=== PATIENT | male | born 1970 | race Caucasian/White ===

== ENCOUNTER → 2018-04-14 | Outpatient (CLI) | payer BC ==
[~2018-04-14] MED LIST: DEXILANT; DEXILANT60 MG PO
--- NOTE | 2018-04-14 10:09 | Diagnostic Imaging Report ---
PROCEDURE: X-RAY UPPER GI SERIES WITH AIR CONTRAST TECHNIQUE: Thin and thick barium were swallowed along with gastric crystals and a variety of fluoroscopic views were obtained of the upper GI tract. BULLET SWAGING MACHINE OPERATOR: Crystal Sawyer MD COMPARISON: None. INDICATIONS: Not provided. FINDINGS: ESOPHAGUS: Motility: Predominately primary and secondary contractions. Scattered tertiary contractions. Mucosa: Unremarkable. Distensibility: Normal. GASTROESOPHAGEAL JUNCTION: Moderate hiatal hernia. GASTROESOPHAGEAL REFLUX: Moderate inducible gastroesophageal reflux to the level of the aortic arch. STOMACH: Normally distensible and demonstrates normal contours and mucosal pattern. DUODENUM: Bulb and sweep are normal. Duodenal-jejunal junction is in the normal expected position. IMPRESSION: Moderate hiatal hernia. Moderate inducible gastroesophageal reflux. Dictated by: CRYSTAL SAWYER M.D. on 04/14/2018 at 10:18 Electronically approved by: CRYSTAL SAWYER M.D. on 04/14/2018 at 10:18
== END ==
LOC: DX 08:10
PROVIDERS: ATTEND Surgery
DX: K44.9 Diaphragmatic hernia without obstruction or gangrene (principal)
CPT/HCPCS: 74246

== ENCOUNTER → 2018-05-12 | Day surgery (SDC) | payer BC ==
[2018-05-09 17:54] LABS: BASOPHILS # (AUTO) 0.1 (0.0-0.1); BASOPHILS % 0.8 % (0.0-1.0); EOSINOPHILS # (AUTO) 0.3 (0.0-0.4); EOSINOPHILS % 4.1 % (0.0-6.0); HEMATOCRIT 45.4 % (38.2-49.6); HEMOGLOBIN 15.9 g/dL (14.0-18.0); LYMPHOCYTES # (AUTO) 1.9 (1.0-3.2); LYMPHOCYTES % 31.6 % (18.0-39.1); MEAN CORPUSCULAR HEMOGLOBIN 30.3 pg (28-32); MEAN CORPUSCULAR VOLUME 86.6 fL (81-99); MONOCYTES # (AUTO) 0.5 (0.2-0.8); MONOCYTES % 7.3 % (4.4-11.3); NEUTROPHILS # (AUTO) 3.4 (2.1-6.9); NEUTROPHILS % 55.9 % (38.7-80.0); PLATELET COUNT 179 x10e3/uL (140-360); RED BLOOD COUNT 5.24 x10e6/uL (4.3-5.7); RED CELL DISTRIBUTION WIDTH 12.5 % (11.7-14.4)
[2018-05-09 18:16] LABS: ALANINE AMINOTRANSFERASE 19 IU/L (0-55); ALBUMIN 4.2 g/dL (3.5-5.0); ALBUMIN/GLOBULIN RATIO 1.8 (0.8-2.0); ALKALINE PHOSPHATASE 45 IU/L (40-150); ANION GAP 14.1 mmol/L (8-16); BLOOD UREA NITROGEN 12 mg/dL (7-26); BUN/CREATININE RATIO 13 (6-25); CALCIUM 9.1 mg/dL (8.4-10.2); CARBON DIOXIDE 25 mmol/L (22-29); CHLORIDE 105 mmol/L (98-107); CREATININE, SERUM 0.94 mg/dL (0.72-1.25); EST GLOMERULAR FILTRATION RATE > 60 ML/MIN (60-); GLUCOSE 98 mg/dL (74-118); POTASSIUM 4.1 mmol/L (3.5-5.1); SODIUM 140 mmol/L (136-145)
[2018-05-09 18:17] LABS: INR 0.91; PROTHROMBIN TIME 13.1 seconds (11.9-14.5)
[~2018-05-12] VITALS: Ht 188 cm; Wt 95.3 kg
[2018-05-12] VITALS (16 sets, daily range): BP systolic 103–138; BP diastolic 69–88
[~2018-05-12] MED LIST changes: +ALPRAZOLAM 0.5 MG TAB ONE; +DIPHENHYDRAMINE HCL 25 MG CAP ONE; +FENTANYL CITRATE/PF 100MCG/2 ML INJ ONE; +HEPARIN SOD (PORCINE) 1000 UNIT/ML 30ML ONE; +HEPARIN SOD/SOD CHLORIDE 2,000 ML ONE; +IOPAMIDOL 370 MG/ML 200 ML INFUS..BTL INJ ONE; +LIDOCAINE HCL 2% LOCAL 20 ML VIAL ONE; +MIDAZOLAM HCL 2 MG/2 ML VIAL ONE; +MORPHINE SULFATE INJ 4 MG/ML INJ ONE; +NITROGLYCERIN 400 MCG/SPRAY 4.9 GM BTL ONE; +NITROGLYCERIN/D5W 200 MCG/ML 250 ML ONE; +SODIUM CHLORIDE 0.9% 1000ML 1,000 ML ONE; +SODIUM CHLORIDE 0.9% 500ML 500 ML ONE; +TICAGRELOR 90 MG TABLET ONE; +VERAPAMIL HCL 2.5 MG/ML 2 ML VIAL ONE
--- OUTSIDE RECORDS SUMMARY | 2018-05-12 11:55 | XMS REPORT ---
Author Author [facility] Address Unknown Phone Unavailable Care Team Providers Care Casing Splitter Name Role Phone Jluis RIZVI Unavailable Unavailable Problems This patient has no known problems. Allergies, Adverse Reactions, Alerts This patient has no known allergies or adverse reactions. Medications This patient has no known medications. Results Test Description Test Time Test Comments Text Results Atomic Results Result Comments UPPER GI W/AIR CONTR 2018-04-14 10:18:00 [place] [address] Patient Name: ECHO HUTCHISON MR #: [id number] : 1970 Age/Sex: 47/M Req #: [id number] [facility] Physician: Ordered by: LEYDI RIZVI MD Report #: [id number] Location: DX Room/Bed: Procedure: [id number] DX/UPPER GI W/AIR CONTR Exam Date: 04/14/18 Exam Time: 0900 REPORT STATUS: Signed PROCEDURE: X-RAY UPPER GI SERIES WITH AIR CONTRAST TECHNIQUE: Thin and thick barium were swallowed along with gastric crystals and a variety of fluoroscopic views were obtained of the upper GI tract. SUPERVISOR GREEN END DEPARTMENT: Shira Sawyer MD COMPARISON: None. INDICATIONS: Not provided. FINDINGS: ESOPHAGUS: Motility: Predominately primary and secondary contractions. Scattered tertiary contractions. Mucosa: Unremarkable. Distensibility: Normal. GASTROESOPHAGEAL JUNCTION: Moderate hiatal hernia. GASTROESOPHAGEAL REFLUX: Moderate inducible gastroesophageal reflux to the level of the aortic arch. STOMACH: Normally distensible and demonstrates normal contours and mucosal pattern. DUODENUM: Bulb and sweep are normal. Duodenal-jejunal junction is in the normal expected position. IMPRESSION: Moderate hiatal hernia. Moderate inducible gastroesophageal reflux. Dictated by: SHIRA SAWYER M.D. on 04/14/2018 at 10:18 Electronically approved by: SHIRA SAWYER M.D. on 04/14/2018 at 10:18 Dictated By: SHIRA SAWYER MD [id number] Transcribed By: MINDI on 04/14/18 1018 COPY TO: LEYDI RIZVI MD
--- NOTE | 2018-05-12 15:47 | Operative Report ---
DATE OF PROCEDURE: May 12, 2018 INDICATIONS: Coronary artery disease, unstable angina and abnormal stress test. PROCEDURES PERFORMED 1. Left heart catheterization. 2. Selective coronary angiography. 3. Percutaneous transluminal coronary angioplasty and stent placement in the distal right coronary artery. 4. Deployment of right wrist transradial band. COMPLICATIONS: None. RECOMMENDATIONS: Dual antiplatelet therapy for at least 6 months. Access was obtained in the right radial artery. A 5-Zimbabwean sheath was placed. Diagnostic coronary angiogram revealed a patent left main. Left anterior descending artery proximal 50% and circumflex 50%. Right coronary artery 50%. Proximally and distally 80%. LV end-diastolic pressure 12. A decision was made to intervene on the right coronary artery. The right coronary artery was cannulated using a JR4 6-Zimbabwean guiding catheter. Patient received 10,000 units of intravenous heparin and oral Brilinta for anticoagulation. The lesion was crossed with a Roadrunner wire, and primary stent 2.5 x 12 mm at 20 atmospheres. Excellent end result. No complications. Right wrist TR band applied. Patient discharged home same day. Job#: [id number] [place]
== END | disposition home or self-care (01) ==
LOC: CATH LAB 11:53
PROVIDERS: ATTEND Internal Medicine Interventional Cardiology
DX: I25.110 Atherosclerotic heart disease of native coronary artery with unstable angina pectoris (principal); R94.39 Abnormal result of other cardiovascular function study; Z01.812 Encounter for preprocedural laboratory examination; Z82.49 Family history of ischemic heart disease and other diseases of the circulatory system
CPT/HCPCS: 36415; 80053; 85025; 85610; 92928; 93454; C1874; C1887; J1644; J2001; J2250; J7030; J7040; Q9967; J2270

== ENCOUNTER → 2019-12-29 | Outpatient (CLI) | payer OTHER ==
[~2019-12-29] MED LIST changes: -ALPRAZOLAM 0.5 MG TAB ONE; -DIPHENHYDRAMINE HCL 25 MG CAP ONE; -FENTANYL CITRATE/PF 100MCG/2 ML INJ ONE; -HEPARIN SOD (PORCINE) 1000 UNIT/ML 30ML ONE; -HEPARIN SOD/SOD CHLORIDE 2,000 ML ONE; -IOPAMIDOL 370 MG/ML 200 ML INFUS..BTL INJ ONE; -LIDOCAINE HCL 2% LOCAL 20 ML VIAL ONE; -MIDAZOLAM HCL 2 MG/2 ML VIAL ONE; -MORPHINE SULFATE INJ 4 MG/ML INJ ONE; -NITROGLYCERIN 400 MCG/SPRAY 4.9 GM BTL ONE; -NITROGLYCERIN/D5W 200 MCG/ML 250 ML ONE; -SODIUM CHLORIDE 0.9% 1000ML 1,000 ML ONE; -SODIUM CHLORIDE 0.9% 500ML 500 ML ONE; -TICAGRELOR 90 MG TABLET ONE; -VERAPAMIL HCL 2.5 MG/ML 2 ML VIAL ONE
--- NOTE | 2019-12-29 15:04 | Diagnostic Imaging Report ---
Right knee MRI without contrast. History: Knee pain. Decreased range of motion. Pain not responding to conservative management. Medial pain. Meniscus tear. Comparison: None. Technique: Multiplanar multi-sequence MRI of the knee without contrast. Findings: Medial compartment: Complex tear involving the posterior horn and body segments of the medial meniscus. Reactive bone marrow edema at the posterior periphery of the medial tibial plateau. Articular cartilage fraying and deep fissuring in the medial compartment with mild underlying bone marrow edema. Peripheral marginal osteophytes. The medial collateral ligament complex is intact. Lateral compartment: No meniscal tear or cartilage abnormality. The LCL complex is normal. Intercondylar notch: The ACL and PCL are intact. Patellofemoral compartment: No chondromalacia or patellar dislocation. Extensor mechanism: The quadriceps and patellar tendons are normal. Other findings: There is a joint effusion and synovitis. There is no acute fracture, subluxation or avascular necrosis. 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 Signed by: Dr. Joseph Escalera M.D. on 12/29/2019 3:00 PM
== END ==
LOC: MRI 13:31
PROVIDERS: ATTEND Family Medicine
DX: M23.303 Other meniscus derangements, unspecified medial meniscus, right knee (principal)

== ENCOUNTER → 2020-01-29 | Day surgery (SDC) | payer OTHER ==
[2020-01-25 13:49] LABS: BASOPHILS % 0.7 % (0.0-1.0); EOSINOPHILS # (AUTO) 0.2 (0.0-0.4); EOSINOPHILS % 4.1 % (0.0-6.0); HEMATOCRIT 43.6 % (38.2-49.6); HEMOGLOBIN 14.6 g/dL (14.0-18.0); LYMPHOCYTES # (AUTO) 1.6 (1.0-3.2); MEAN CORPUSCULAR HEMOGLOBIN 29.6 pg (28-32); MEAN CORPUSCULAR HGB CONC 33.5 g/dL (31-35); MEAN CORPUSCULAR VOLUME 88.3 fL (81-99); MONOCYTES # (AUTO) 0.3 (0.2-0.8); MONOCYTES % 5.8 % (4.4-11.3); NEUTROPHILS # (AUTO) 3.6 (2.1-6.9); NEUTROPHILS % 61.1 % (38.7-80.0); PLATELET COUNT 141 x10e3/uL (140-360); RED BLOOD COUNT 4.94 x10e6/uL (4.3-5.7); RED CELL DISTRIBUTION WIDTH 12.3 % (11.7-14.4)
--- NOTE | 2020-01-25 14:20 | Diagnostic Imaging Report ---
Exam: CHEST 2 VIEWS Date: 01/25/2020 2:16 PM INDICATION: ^[id number] ^[id number] ^PRE-OP Comparison: None FINDINGS: Lines/Tubes:None Lungs:The lungs are well inflated. No focal consolidation or pulmonary edema. Pleura:No pleural effusion. No pneumothorax. Heart/Mediastinum:The cardiomediastinal silhouette is normal in size and contour. Trachea projects midline. Pulmonary vascularity is within normal limits. Bones/Soft Tissues: No acute osseous abnormality. Mild multilevel degenerative changes of the visualized spine are noted. Upper abdomen: Unremarkable. IMPRESSION: Negative for acute intrathoracic process Signed by: Aidan Gannon MD on 01/25/2020 2:17 PM
[~2020-01-29] MED LIST changes: +ASPIRIN81 MG PO; +ATENOLOL50 MG PO; +ATORVASTATIN CA40 MG PO; +BUPIVACAINE 0.25% 30ML SDV INJ ONE; +CEFAZOLIN SOD 1 GM/NS 50ML 100 ML IV ONE; +DEXAMETHASONE SOD PHOS INJ 4 MG/ML VIAL ONE; +KETOROLAC TROMETHAMINE 30 MG/ML VIAL ONE; +LIDOCAINE 1% W/EPINEPHRINE 20 ML VIAL ONE; +LIDOCAINE HCL 2% LOCAL INJ 5 ML SDV VIAL INJ ONE; +MIDAZOLAM HCL 2 MG/2 ML VIAL ONE; +ONDANSETRON HCL INJ 2MG/ML 2ML 2 MG/ML VIAL ONE; +PROPOFOL IV EMULSION 10 MG/ML 20 ML VIAL ONE; +SEVOFLURANE INHAL SOLN 250 ML PEN BTL ONE
[2020-01-29 09:10] VITALS: BP 119/76
--- NOTE | 2020-01-29 10:16 | NUR ---
ORTHOPEDICS OPERATIVE NOTE PREOPERATIVE DIAGNOSES: Right Knee Medial Meniscus Tear POSTOPERATIVE DIAGNOSES: Right Knee Complex Medial Meniscus Tear, Synovitis, Chondromalacia PROCEDURE: Right Knee Arthroscopic Partial Medial Meniscectomy, Chondroplasty, and Partial Synovectomy SURGEON: Joana Maloney DO AVAYA ENGINEER: EUNICE Gonzalez ANESTHESIA: General COMPLICATIONS: None TOURNIQUET: Applied but not inflated. No tourniquet EBL: Minimal INDICATIONS: Due to persistent pain and limitations on activity combined with findings on exam and imaging, the patient requests surgical treatment. Nonopera tive care and alternative surgical options were reviewed. We agreed that this provided the best risk/benefit profile for this patient, understanding and accepting risks of recurrent/persistent symptoms, infection, bleeding, stiffness, neurological/vascular damage, failure to improve and anesthetic complication (as reviewed by anesthesia service). Also, the patient understands that arthroscopic treatment of articular cartilage lesions provides temporary incomplete relief but that meniscal symptoms should be well addressed. FINDINGS: Patella Grade 2 Trochlea - Grade 1 Lateral Gutter Normal Medial Gutter Normal Medial Compartment Femoral - Grade 1 Tibial - Grade 1 Medial Meniscus - Complex tear of posterior horn Cruciate region - Normal Lateral Compartment Femoral - Grade 1 Tibial - Grade 1 Lateral Meniscus - Normal Synovium - Hypertrophic & Hyperemic in all three compartments PROCEDURE: With the patient in the supine position with all prominences well padded, general anesthesia was obtained. Sterile prepping and draping were performed. Antibiotics had been given and a time out performed. After an injection of 1% Lidocaine with Epinephrine in the proposed incision sites, The arthroscope was i nserted via a small lateral parapatellar tendon incision into the patellofemoral space. Under direct visualization, a medial parapatellar tendon portal was created providing a working portal. Diagnostic arthroscopy was performed and the above findings were noted. Within the patellofemoral space, a large impinging plica was noted causing chondromalacia of the inferior pole of the patella. This synovium and plica was excited and the chondromalacia was shaved to a stable border. Within the medial compartment, the medial meniscus was debrided to establish a well-balanced rim, removing approximately 60% of the posterior horn of the medial meniscus. A stable border was created. There was grade 1 chondromalacia, which was debrided to stable borders. Within the intercondylar space, the ACL was visualized and intact The lateral compartment demonstrated a friable and frayed lateral meniscus with grade 1 chondromalacia. This was debrided with an arthroscopic shaver to a stab le border with 80% of the meniscus remaining. The joint was extravasated and .25% marcaine was injected into the knee. The incisions were closed and more local was injected around the portal sites. Steristrips, Xeroform, 4x4s, ABDs and a compressive PAT bandage were applied. The patient was awakened and transferred to the PACU in satisfactory condition having tolerated the procedure well.
== END | disposition home or self-care (01) ==
LOC: OR 05:39
PROVIDERS: ATTEND Orthopaedic Surgery
DX: S83.231A Complex tear of medial meniscus, current injury, right knee, initial encounter (principal); M65.9 Synovitis and tenosynovitis, unspecified; M22.41 Chondromalacia patellae, right knee; M67.51 Plica syndrome, right knee; K21.9 Gastro-esophageal reflux disease without esophagitis; I25.10 Atherosclerotic heart disease of native coronary artery without angina pectoris; X58.XXXA Exposure to other specified factors, initial encounter; Z01.810 Encounter for preprocedural cardiovascular examination; Z01.812 Encounter for preprocedural laboratory examination; Z01.818 Encounter for other preprocedural examination; Z11.59 Encounter for screening for other viral diseases; Z79.82 Long term (current) use of aspirin; Z95.5 Presence of coronary angioplasty implant and graft
CPT/HCPCS: 29881; 36415; 71046; 85025; 93005; J0690; J1100; J1885; J2001; J2250; J2405; J2704; U0002

== ENCOUNTER → 2021-04-03 | Day surgery (SDC) | payer OTHER ==
[~2021-04-03] MED LIST changes: -BUPIVACAINE 0.25% 30ML SDV INJ ONE; -CEFAZOLIN SOD 1 GM/NS 50ML 100 ML IV ONE; +DEXAMETHASONE SOD PHOS INJ 4 MG/ML SDV ONE; -DEXAMETHASONE SOD PHOS INJ 4 MG/ML VIAL ONE; -KETOROLAC TROMETHAMINE 30 MG/ML VIAL ONE; -LIDOCAINE 1% W/EPINEPHRINE 20 ML VIAL ONE; -SEVOFLURANE INHAL SOLN 250 ML PEN BTL ONE
[2021-04-03 13:00] VITALS: BP 112/77
== END | disposition home or self-care (01) ==
LOC: OR 10:08
PROVIDERS: ATTEND Internal Medicine Gastroenterology
DX: K21.9 Gastro-esophageal reflux disease without esophagitis (principal); K22.70 Barrett's esophagus without dysplasia; Z68.28 Body mass index [BMI] 28.0-28.9, adult; R03.0 Elevated blood-pressure reading, without diagnosis of hypertension; K44.9 Diaphragmatic hernia without obstruction or gangrene; K29.70 Gastritis, unspecified, without bleeding; K31.7 Polyp of stomach and duodenum; F41.9 Anxiety disorder, unspecified; I25.10 Atherosclerotic heart disease of native coronary artery without angina pectoris; I10 Essential (primary) hypertension; Z95.5 Presence of coronary angioplasty implant and graft; Z01.810 Encounter for preprocedural cardiovascular examination; Z01.812 Encounter for preprocedural laboratory examination; Z20.822 Contact with and (suspected) exposure to COVID-19
CPT/HCPCS: 43239; 93005; C9113; J1100; J2001; J2250; J2405; J2704; U0002

== ENCOUNTER → 2021-05-02 | Outpatient (CLI) | payer OTHER ==
[~2021-05-02] MED LIST changes: -DEXAMETHASONE SOD PHOS INJ 4 MG/ML SDV ONE; -LIDOCAINE HCL 2% LOCAL INJ 5 ML SDV VIAL INJ ONE; -MIDAZOLAM HCL 2 MG/2 ML VIAL ONE; -ONDANSETRON HCL INJ 2MG/ML 2ML 2 MG/ML VIAL ONE; -PROPOFOL IV EMULSION 10 MG/ML 20 ML VIAL ONE
== END ==
LOC: MRI 09:46
PROVIDERS: ATTEND Orthopaedic Surgery
DX: M76.12 Psoas tendinitis, left hip (principal); S83.232A Complex tear of medial meniscus, current injury, left knee, initial encounter